=== PATIENT | female | born 1990 | race Caucasian/White ===

== ENCOUNTER 2023-01-04 11:18 | Emergency (ER) | payer MEDICAID, SELFPAY ==
--- NOTE | ~2023-01-04 | CT_ITS ---
EXAMINATION: CT ABDOMEN AND PELVIS WITH CONTRAST CLINICAL INFORMATION: Severe lower abdominal pain COMPARISON: None available. TECHNIQUE: Multidetector volumetric images were obtained from the superior aspect of the liver through the pubic symphysis following administration 85 mL of Omnipaque 350 intravenous contrast. Sagittal and coronal reformatted images were obtained on the technologist's workstation. Oral contrast: No This CT examination was performed using dose optimization techniques as appropriate, variously including the following: *Automated exposure control *Adjustment of mA and/or kV according to patient size (this includes techniques or standardized protocols for targeted exams where dose is matched to indication/reason for exam; i.e. extremities or head) *Use of iterative reconstruction technique DLP: 858 mGy-cm FINDINGS: LUNG BASES: The visualized lung bases are unremarkable. LIVER, GALLBLADDER, AND BILIARY TREE: The liver is normal in size, shape, and attenuation. No focal hepatic lesion or biliary ductal dilatation is present. The gallbladder is unremarkable with no evidence of radiopaque gallstones, gallbladder wall thickening, or obvious pericholecystic inflammatory changes. PANCREAS: Unremarkable. SPLEEN: Unremarkable. ADRENAL GLANDS: Unremarkable. KIDNEYS AND URETERS: The kidneys are normal in size, shape, and attenuation. No hydronephrosis, hydroureter, or calculi seen. No perinephric stranding. BLADDER: Unremarkable. GASTROINTESTINAL TRACT: There is scattered moderate stool and gas seen throughout the colon without significant distention. The small bowel loops are normal caliber. Appendix is normal caliber. No inflammatory process, free air or free fluid. ABDOMINAL WALL: No significant hernia is appreciated. LYMPH NODES: There is a 2.7 x 3.2 x 2.9 cm round lesion along the left anterior abdominal wall anterior to the rectus muscle and adjacent fat stranding. It is solid and measures 52 Hounsfield units. A small umbilical hernia containing fat is noted. VASCULAR: Unremarkable. PELVIC VISCERA: The uterus is anteverted and appears unremarkable. No free fluid or free air seen. OSSEOUS STRUCTURES: No aggressive lytic or sclerotic process seen. CT/CT abdomen pelvis w IV con IMPRESSION: 1. No acute intra-abdominal process seen. 2. Moderate constipation. Normal appendix. 3. Small umbilical hernia containing fat. 4. There is a 2.7 x 3.2 x 2.9 cm round lesion along the left anterior abdominal wall anterior to the rectus muscle and adjacent fat stranding. Differential diagnoses includes keloid, hematoma or granuloma. Fleischner guidelines were followed.
[2023-01-04 12:22] VITALS: BP 130/84; PULSE 88; RESP 20; TEMP 36.4; O2SAT 100; BMI 37.2
--- NOTE | 2023-01-04 12:23 | ED_ITS ---
HPI - Abdominal Pain General Chief Complaint: General Medical Stated Complaint: Hernia Time Seen by Provider: 01/04/23 13:18 Source: patient Limitations: no limitations History of Present Illness HPI narrative: 32-year-old female predominantly [place]an Creole speaking recently moved from [facility]. She has 3 children and has had 3 sections. She has been reporting constant severe lower abdominal pain for months. The symptoms are p rogressively getting worse. The symptoms are worsened by position. There are no relieving features. She has had no diarrhea, fevers but does complain of chills no unexpected weight changes. She denies any night sweats. She has had nausea but no vomiting. Patient has had imaging studies recently including her recent imaging study at [facility]. She reports having had a CT scan there. Today, her pain is gotten progressively worse. She reports her pain is a 10/10. Is in lower abdominal/suprapubic area. The pain does not radiate. Pain is similar in quality to her previous visit in the emergency department Review of the records from 01/03/2023 do in fact show a CT scan the abdomen pelvis with IV contrast only. Impression shows a 3.1 cm area of high attenuation just superficial to the lateral aspect of the left rectus abdominus muscle. Differential diagnosis includes hematoma soft tissue tumor, phlegmon. There is a small umbilical fat containing hernia. Patient was discharged with recommendations to take Tylenol and ibuprofen as needed for pain. Related Data Previous Rx's Medication Instructions Recorded dicyclomine 20 mg tablet 20 mg PO QID #20 tabs 01/04/23 Allergies Allergy/AdvReac Type Severity Reaction Status Date / Time No Known Allergies Allergy Verified 01/04/23 12:26 Review of Systems Review of Systems CONSTITUTIONAL: Denies weight loss, fever and chills. HEENT: Denies changes in vision and hearing. RESPIRATORY: Denies SOB and cough. CV: Denies palpitations no CP. GI: + abdominal pain, nausea, -vomiting and diarrhea. : Denies dysuria and urinary frequency. MSK: Denies myalgia and joint pain. SKIN: Denies rash and pruritus. NEUROLOGICAL: Denies headache and syncope. PSYCHIATRIC: Denies recent changes in mood. Denies anxiety and depression. All other ROS are negative unless in HPI PMFSH Past Medical History Surgical History Hx of section Social History Social History Alcohol intake: never Smoked in Last 30 Days: No Use of substances other than those prescribed or required for medical reasons: No Advance Directives: No Advance Directives Information Provided: No Patient : No Physical Exam ED Vital Signs: Vital Signs - 24 hr 01/04/23 12:22 01/04/23 13:26 Temperature 97.6 F 98.6 F Pulse Rate 88 Respiratory Rate 20 Blood Pressure 130/84 111/51 L Pulse Oximetry 100 Oxygen Delivery Method Room Air BMI result Body Mass Index 37.2 GEN: Well developed, + acute distress, alert, oriented HEENT: Normocephalic, atraumatic, normal external ears, nose appears normal, no oropharyngeal edema or exudates Eyes: Normal to appearance Neck: Supple, no lymphadenopathy Respiratory: Talks in complete sentences, no respiratory distress, clear to auscultation bilaterally Cardiovascular: Regular rate and rhythm, no murmurs rubs or gallops Abdomen: Soft, tenderness lower abdomen, nondistended, no guarding, no rebound Back: No CVA tenderness Extremities: No clubbing cyanosis or edema Neurologic: No focal neurologic deficits, cranial nerves 2-12 intact, strength is 5/5 bilaterally Skin: No rash Course Course Course Narrative: RME - 32 yo Cameroonian/Maori speaking female with history of x3, hx abdominal hernia (unknown what type) presents to the ER for evaluation of worsening abdominal pain for the last several months. Deferred surgery in [place] that was recommended. Seen in [place] where surgery was recommended as well. She has been c/o severe pain with eating and recurrent vomiting. Pain is 10/10, unable to walk today. Abd very tender LLQ, appears very uncomfortable. Plan: labs, CT abd/pelvis w/ contrast Reevaluation(s) Reevaluation #1: The workup is complete. The CT scan of her abdomen and pelvis is consistent with her CT scan yesterday at [facility]. She has a small mass in the abdominal wall. She has a fat containing umbilical hernia. The etiology of her pain is not clearly elucidated this time. I will refer her to OBGYN, Gastroenterology and General surgery for further evaluation. In the meantime, I will try dicyclomine 4 times daily. Time: 16:45 Medical Decision Making Medical Decision Making [facility] Narrative: 32-year-old female presents with severe abdominal pain. Pain is been going on for several months. Examination reveals suprapubic and left lower quadrant abdominal tenderness without rebound or guarding. I did review her recent medical records from [facility] which had an imaging study yesterday. The results were discussed in the HPI. At this point, differential diagnosis includes IBD, IBS, motility disorder, chronic abdominal pain, pain of no unknown etiology, less likely to be diverticulitis, colitis, bowel obstruction, mesenteric ischemia. Will provide patient with analgesia, IV fluids, antiemetics. Will repeat laboratory analysis. A CT scan was ordered prior to my evaluation. We can compare that to yesterday's study. Differential Diagnosis Differential Diagnoses: The differential diagnosis associated with the prese ntation includes (See above) Admission/Observation Consideration of admission/observation: Escalation of care including admission/observation considered (Pending clinical improvement and full evaluation) Lab Data [facility] Lab Attestation statement: I reviewed the patient's lab results. 01/04/23 12:43 01/04/23 12:43 Labs: Lab Results 01/04/23 01/04/23 01/04/23 Range/Units 12:43 12:43 12:43 WBC 6.2 (4.8-10.8) X10*3/uL RBC 4.85 (4.20-5.50) X10*6/uL Hgb 12.3 (12.0-16.0) g/dl Hct 38.2 (37.0-47.0) % MCV 78.8 L (80.0-98.0) fL MCH 25.4 L (27.0-33.0) pg MCHC 32.2 (31.0-35.0) g/dl RDW 14.6 (11.0-16.0) % Plt Count 320 (160-400) X10*3/uL MPV 10.3 (9.4-12.3) fL Immature Gran % (Auto) 0.2 (0.0-0.4) % Neut % (Auto) 51.9 (45-73) % Lymph % (Auto) 34.4 (20-40) % [place] % (Auto) 11.3 H (2-11) % Eos % (Auto) 1.9 (0-4) % Baso % (Auto) 0.3 (0-2) % Lymph # (Auto) 2.1 (1.2-4.9) X10*3/uL [place] # (Auto) 0.7 (0.1-1.2) X10*3/uL Eos # (Auto) 0.1 (0.0-0.4) X10*3/uL Baso # (Auto) 0.0 (0.0-0.2) X10*3/uL Abs Immat Gran (auto) 0.01 (0.00-0.03) X10*3/uL Absolute Neuts (auto) 3.2 (2.0-8.3) x10*3/uL Absolute Nucleated RBC 0.000 (0.0-0.012) X10*3/uL Nucleated RBC % (auto) 0.0 (0.0-0.2) /100WBC Sodium 140 (135-145) mmol/L Potassium 4.5 (3.3-5.1) mmol/L Chloride 106 (96-108) mmol/L Carbon Dioxide 27 (22-29) mmol/L Anion Gap 12 (12-20) BUN 15 (9-16) mg/dL Creatinine 0.80 (0.5-1.4) mg/dL Estim Creat Clear Calc 129.5 Estimated GFR > 60 Random Glucose 80 (60-115) mg/dL Lactic Acid 1.3 (0.5-2.0) mmol/L Calcium 9.9 (8.4-10.2) mg/dL Magnesium 2.2 (1.6-2.6) mg/dL Total Bilirubin 0.6 (0.0-1.0) mg/dL Direct Bilirubin 0.2 (0.0-0.5) mg/dL AST 15 (5-31) U/L ALT 12 (0-31) U/L Alkaline Phosphatase 58 (39-117) U/L Total Protein 7.6 (6.5-8.0) g/dL Albumin 4.2 (3.5-5.0) g/dL Lipase 34 (8-78) U/L Beta HCG, Quant mIU/mL 01/04/23 Range/Units 12:43 WBC (4.8-10.8) X10*3/uL RBC (4.20-5.50) X10*6/uL Hgb (12.0-16.0) g/dl Hct (37.0-47.0) % MCV (80.0-98.0) fL MCH (27.0-33.0) pg MCHC (31.0-35.0) g/dl RDW (11.0-16.0) % Plt Count (160-400) X10*3/uL MPV (9.4-12.3) fL Immature Gran % (Auto) (0.0-0.4) % Neut % (Auto) (45-73) % Lymph % (Auto) (20-40) % [place] % (Auto) (2-11) % Eos % (Auto) (0-4) % Baso % (Auto) (0-2) % Lymph # (Auto) (1.2-4.9) X10*3/uL [place] # (Auto) (0.1-1.2) X10*3/uL Eos # (Auto) (0.0-0.4) X10*3/uL Baso # (Auto) (0.0-0.2) X10*3/uL Abs Immat Gran (auto) (0.00-0.03) X10*3/uL Absolute Neuts (auto) (2.0-8.3) x10*3/uL Absolute Nucleated RBC (0.0-0.012) X10*3/uL Nucleated RBC % (auto) (0.0-0.2) /100WBC Sodium (135-145) mmol/L Potassium (3.3-5.1) mmol/L Chloride (96-108) mmol/L Carbon Dioxide (22-29) mmol/L Anion Gap (12-20) BUN (9-16) mg/dL Creatinine (0.5-1.4) mg/dL Estim Creat Clear Calc Estimated GFR Random Glucose (60-115) mg/dL Lactic Acid (0.5-2.0) mmol/L Calcium (8.4-10.2) mg/dL Magnesium (1.6-2.6) mg/dL Total Bilirubin (0.0-1.0) mg/dL Direct Bilirubin (0.0-0.5) mg/dL AST (5-31) U/L ALT (0-31) U/L Alkaline Phosphatase (39-117) U/L Total Protein (6.5-8.0) g/dL Albumin (3.5-5.0) g/dL Lipase (8-78) U/L Beta HCG, Quant < 2 mIU/mL Independent Interpretation I performed an independent interpretation of an: CT Scan (No acute findings, area of high attenuation in the lateral aspect of the left rectus, otherwise no significant acute findings.) Radiology Impression Discussion of test interpretation with radiology: I have reviewed the radiologist's reading. ( CT/CT abdomen pelvis w IV con IMPRESSION: 1. No acute intra-abdominal process seen. 2. Moderate constipation. Normal appendix. 3. Small umbilical hernia containing fat. 4. There is a 2.7 x 3.2 x 2.9 cm round lesion along the left anterior abdominal wall anterior to the rectus ) External Record Review External record reviewed: Outside ED record ([facility] 01/03/2023) Prescription Management I considered prescription management with: Pain Medication and Antibiotic Medications Administered Discontinued Medications Generic Name Dose Route Start Last Admin Trade Name Freq PRN Reason Stop Dose Admin Hydromorphone HCl 1 mg 01/04/23 13:36 01/04/23 13:51 Hydromorphone Hcl 1 Mg/Ml Syringe IVPUSH 01/04/23 13:37 1 mg ONCE ONE Administration Protocol Sodium Chloride 1,000 mls @ 999 mls/hr 01/04/23 13:45 01/04/23 15:26 Ns IV 01/04/23 14:45 Infused .Q1H1M SAMANTHA Infusion Iohexol 85 ml 01/04/23 14:29 01/04/23 14:29 Iohexol 350 Mg/Ml 100 Ml Infus..Btl IV 01/04/23 14:30 85 ml ONCE ONE Administration Ondansetron HCl 4 mg 01/04/23 13:36 01/04/23 13:51 Ondansetron Hcl 4 Mg/2 Ml Vial IVPUSH 01/04/23 13:37 4 mg ONCE ONE Administration Discharge Plan Discharge Clinical Impression: Abdominal pain, chronic, generalized, Hernia, umbilical, Abnormal finding on imaging Patient Disposition: Home, Self-Care Instructions: Abdominal Pain (ED) Prescriptions: New dicyclomine 20 mg tablet 20 mg PO QID Qty: 20 0RF Referrals: Chris Brock [Physician] - 1 week Cory Schneider MD [Physician] - 1 week Rodger Weldon MD [Physician] - 1 week Print Language: Cameroonian
[2023-01-04 12:50] LABS: MANUAL DIFF FLAG NO
[2023-01-04 12:53] LABS: Basophils Percent Auto 0.3 % (0-2); Eosinophils Absolute Auto 0.1 X10*3/uL (0.0-0.4); Eosinophils Percent Auto 1.9 % (0-4); Hematocrit 38.2 % (37.0-47.0); Hemoglobin 12.3 g/dl (12.0-16.0); Imm Gran Abs Auto 0.01 X10*3/uL (0.00-0.03); Imm Gran Pct Auto 0.2 % (0.0-0.4); Lymphocytes Absolute Auto 2.1 X10*3/uL (1.2-4.9); Lymphocytes Percent Auto 34.4 % (20-40); Mean Corpuscular HGB Conc 32.2 g/dl (31.0-35.0); Mean Corpuscular Hemoglobin 25.4 pg (27.0-33.0); Mean Corpuscular Volume 78.8 fL (80.0-98.0); Mean Platelet Volume 10.3 fL (9.4-12.3); Monocytes Absolute Auto 0.7 X10*3/uL (0.1-1.2); Monocytes Percent Auto 11.3 % (2-11); Neutrophils Absolute Auto 3.2 x10*3/uL (2.0-8.3); Neutrophils Percent Auto 51.9 % (45-73); Platelet Count 320 X10*3/uL (160-400); Red Blood Count 4.85 X10*6/uL (4.20-5.50); Red Cell Distribution Width 14.6 % (11.0-16.0); White Blood Count 6.2 X10*3/uL (4.8-10.8)
[2023-01-04 13:12] LABS: Lactic Acid 1.3 mmol/L (0.5-2.0)
[2023-01-04 13:15] LABS: Alanine Aminotransferase 12 U/L (0-31); Albumin Level 4.2 g/dL (3.5-5.0); Alkaline Phosphatase 58 U/L (39-117); Anion Gap 12 (12-20); Aspartate Amino Transferase 15 U/L (5-31); Bilirubin Direct 0.2 mg/dL (0.0-0.5); Bilirubin Total 0.6 mg/dL (0.0-1.0); Blood Urea Nitrogen 15 mg/dL (9-16); Calcium 9.9 mg/dL (8.4-10.2); Carbon Dioxide 27 mmol/L (22-29); Chloride 106 mmol/L (96-108); Creatinine Clr Calc Pharmacy 129.5; Estimated Glomerular Filt Rate > 60; Glucose Random 80 mg/dL (60-115); Lipase 34 U/L (8-78); Magnesium 2.2 mg/dL (1.6-2.6); Potassium 4.5 mmol/L (3.3-5.1); Sodium 140 mmol/L (135-145); Total Protein 7.6 g/dL (6.5-8.0)
[2023-01-04 13:26] VITALS: BP 111/51; TEMP 37
[2023-01-04 13:30] LABS: HCG Quantitative < 2 mIU/mL
[2023-01-04] MEDS: HYDROmorphone HCl 1 MG/ML SYRINGE IVPUSH (13:51)
[2023-01-04] MEDS: ondansetron HCL 4 MG/2 ML VIAL IVPUSH (13:51)
[2023-01-04] MEDS: 0.9 % Sodium Chloride 1,000 ML 999 ML IV (13:52)
--- NOTE | 2023-01-04 13:56 | PC.NURSE ---
pt alert and oriented, senior radiation therapist in room for initial assessment, dr. reddy in room during assessment, pt states 10/10 pain, vss, medications and fluids administered per provider order, call cifuentes within reach.
[2023-01-04] MEDS: iohexoL 350 MG/ML 100 ML INFUS..BTL 85 ML IV (14:29)
--- NOTE | 2023-01-04 15:59 | PC.NURSE ---
patient a&ox3, pt rang call cifuentes stating she didnt feel right but couldn't describe why, pt was shaking, this nurse applied nuclear monitoring technician and it was noted pt was sinus tach on the monitor- vitals otherwise stable, notified provider, will continue to monitor.
== END 2023-01-04 17:32 | disposition home or self-care (01) ==
PROVIDERS: Physician Assistant; Emergency Provider Emergency Medicine
DX: G89.29 Other chronic pain (principal); R10.84 Generalized abdominal pain; K42.9 Umbilical hernia without obstruction or gangrene; R93.5 Abnormal findings on diagnostic imaging of other abdominal regions, including retroperitoneum; R19.00 Intra-abdominal and pelvic swelling, mass and lump, unspecified site; E66.01 Morbid (severe) obesity due to excess calories; Z68.37 Body mass index [BMI] 37.0-37.9, adult
CPT/HCPCS: 36415; 74177; 80048; 80076; 83605; 83690; 83735; 84702; 85025; 96361; 96374; 96375; 99284; J1170; J2405; Q9967

== ENCOUNTER → 2023-01-15 10:12 | Outpatient (BNVA) | payer MEDICAID, SELFPAY | PROVIDERS: Visit Provider Surgery | DX: R19.00 Intra-abdominal and pelvic swelling, mass and lump, unspecified site (principal); E66.01 Morbid (severe) obesity due to excess calories; Z68.37 Body mass index [BMI] 37.0-37.9, adult | CPT/HCPCS: 99202 ==

== ENCOUNTER 2023-02-18 12:23 | Day surgery (SDC) | payer OTHER, SELFPAY ==
--- NOTE | ~2023-02-18 | US_ITS ---
Ultrasound-guided biopsy of the subcutaneous soft tissue mass in the left lower quadrant INDICATIONS: 3.2 x 3.4 cm solid mass in the subcutaneous tissue in the left lower quadrant. This corresponds to the area of abnormality noted on the previous CT scan dated 01/04/2023. After informed and written consent was obtained an official timeout was performed immediately prior to the procedure. PROCEDURE: Initial ultrasound surveillance was performed. There is a solid lesion in the subcutaneous tissue measuring 3.2 x 3.4 cm in size. The skin was prepped and draped in usual fashion overlying this area. 1% Xylocaine was used for local anesthetic. Under ultrasound guidance an 18-gauge Temno core biopsy needle was placed into the lesion in the left lower quadrant. 4 core biopsy specimens were obtained. The specimens were sent for analysis. The needle was removed and manual pressure held. US/US guide needle placement IMPRESSION: Ultrasound-guided biopsy of the 3.2 x 3.4 cm mass in the subcutaneous tissues in the left lower quadrant
[2023-02-18 13:43] VITALS: BMI 39.9
--- NOTE | 2023-02-18 13:51 | PC.NURSE ---
PATIENT WAS CHECKED IN AND COULDN'T FIND THE PATIENT. OUR SEWER SEPARATION DESIGNER CALLED TO PATIENT REGISTRATION TO SEE WHERE THEY SENT THE PATIENT AND SHE WAS SENT TO THE RADIOLOGY DEPT. THE RADIOLOGY DEPARTMENT HASD THE PATIENT AND WASNT AWARE THE PROCEDURE WAS BOOKED UNDER CONSCIOUS SEDATION. PATIENT BROUGHT TO THE CORRECT DEPT IN [facility] BED [facility] AND THE CERTIFIED ORTHOTIC FITTER WAS USED TO EXPLAIN THE PROCEDURE AND WHY THERE WAS CONFUSION TO WHERE SHE NEEDED TO BE. PATIENT AWARE OF PLAN AND AGREED TO STILL HAVE THE PROCEDURE PERFORMED. URINE SAMPLE COLLECTED AND LAB CALLED.
[2023-02-18 14:03] LABS: UPreg QC Valid YES; Urine Pregnancy NEGATIVE (NEGATIVE)
[2023-02-18 14:16] LABS: MANUAL DIFF FLAG NO
[2023-02-18 14:19] LABS: Basophils Percent Auto 0.4 % (0-2); Eosinophils Absolute Auto 0.1 X10*3/uL (0.0-0.4); Eosinophils Percent Auto 1.3 % (0-4); Hematocrit 36.5 % (37.0-47.0); Hemoglobin 11.9 g/dl (12.0-16.0); Lymphocytes Absolute Auto 2.3 X10*3/uL (1.2-4.9); Lymphocytes Percent Auto 42.2 % (20-40); Mean Corpuscular HGB Conc 32.6 g/dl (31.0-35.0); Mean Corpuscular Hemoglobin 25.6 pg (27.0-33.0); Mean Corpuscular Volume 78.5 fL (80.0-98.0); Mean Platelet Volume 10.3 fL (9.4-12.3); Monocytes Absolute Auto 0.7 X10*3/uL (0.1-1.2); Monocytes Percent Auto 12.8 % (2-11); Neutrophils Absolute Auto 2.4 x10*3/uL (2.0-8.3); Neutrophils Percent Auto 43.3 % (45-73); Platelet Count 299 X10*3/uL (160-400); Red Blood Count 4.65 X10*6/uL (4.20-5.50); White Blood Count 5.5 X10*3/uL (4.8-10.8)
[2023-02-18 14:24] LABS: INTERNATIONAL NORM RATIO 0.9 (0.9-1.1); Prothrombin Time 11.3 SEC (11.1-13.3)
[2023-02-18 14:31] LABS: Anion Gap 12 (12-20); Blood Urea Nitrogen 12 mg/dL (9-16); Carbon Dioxide 25 mmol/L (22-29); Chloride 107 mmol/L (96-108); Creatinine Clr Calc Pharmacy 134.1; Estimated Glomerular Filt Rate > 60; Potassium 4.1 mmol/L (3.3-5.1); Sodium 140 mmol/L (135-145)
[2023-02-18 15:35] VITALS: BP 106/50; PULSE 77; RESP 20; TEMP 36.6; O2SAT 100
[2023-02-18] MEDS: Lidocaine HCl 1 % MPF 5 ML VIAL SUBCUT (15:36)
[2023-02-18 15:50] VITALS: BP 102/60; PULSE 76; RESP 18; O2SAT 100
[2023-02-18 16:05] VITALS: BP 114/75; PULSE 82; RESP 18; O2SAT 100
[2023-02-18] MEDS: Acetaminophen 325 MG TABLET 650 MG PO (16:12)
[2023-02-18 16:20] VITALS: BP 121/72; PULSE 81; RESP 16; O2SAT 100
[2023-02-18 16:35] VITALS: BP 109/63; PULSE 75; RESP 14; TEMP 36.6; O2SAT 100
== END 2023-02-18 17:05 | disposition home or self-care (01) ==
PROVIDERS: Radiology Diagnostic Radiology; Visit Provider Radiology Vascular & Interventional Radiology
DX: R19.00 Intra-abdominal and pelvic swelling, mass and lump, unspecified site (principal); E66.01 Morbid (severe) obesity due to excess calories; Z68.37 Body mass index [BMI] 37.0-37.9, adult
CPT/HCPCS: 36415; 49180; 76942; 80051; 81025; 82565; 84520; 85025; 85610; 88305; 88307; 88341; 88342; 99152; J2250; J3010

== ENCOUNTER → 2023-02-18 12:38 | Outpatient (BNV) | payer OTHER, SELFPAY | PROVIDERS: Visit Provider Radiology Vascular & Interventional Radiology | DX: R19.00 Intra-abdominal and pelvic swelling, mass and lump, unspecified site (principal) | CPT/HCPCS: 49180; 76942 ==

== ENCOUNTER 2023-03-19 10:04 | Outpatient (AMB) | payer OTHER, SELFPAY ==
--- NOTE | 2023-03-19 10:31 | MHC.OFFVIS ---
Intake Vital Signs 03/19/23 10:32 BP 126/74 Blood Pressure Location Lt brachial Position Sitting Pulse 97 Pulse Oximetry (%) 99 Oxygen Delivery Method Room Air Intake Visit Reasons: F/u Abd mass Intake Note: This patient presents for an assessment for abdominal mass. Patient c/o; reports no changes. Casing Inspector Required: Yes Casing Inspector Language: Archivist [employer] History Name: Bob Information Interpreted: non-clinical & clinical Accompanied by: Child Allergies No Known Allergies Allergy (Verified 03/19/23 10:36) HPI HPI Comments History of Present Illness Details The patient speaks fluent Japanese and [place] Creole and Adamaris helped facilitate today's visit Notes from the [place] emergency room visit dated 01/04/2023 and notes from [facility] emergency room visit dated 01/02/2023 and related labs and imaging are reviewed. The patient notes that for about a year, she has had progressive left lower quadrant abdominal pain. She has had 2 CTs that demonstrate a solid mass over the left lower rectus. The notes from [facility] indicate outpatient follow-up and IR directed biopsy would be scheduled, but the director of casework services inpatient or unaware of any plans and wished to have the procedures done here at [place]. Other than her C-sections and tubal, the patient denies any prior trauma. She notes that her tubal was performed in 2019. IR biopsy on 02/18/2023 demonstrated endometrioma. The patient needed redirecting because she insisted that in [place] she was told she has a cyst, and has been told in emergency room visits that she has a hernia. She has not seen vegetable loader for this endometrioma and had questions regarding additional pregnancies and tubal ligation. Patient denies other medical problems including diabetes, hypertension, asthma. She does note a family history of hernias and is concerned that her hernia may become problematic in that the pain is related to her hernia. She denies any signs or symptoms of obstruction incarceration or strangulation. The patient notes that her weight is increasing. [facility] Surgical History Hx of section Family History Mother Ovarian cancer Social History Alcohol intake: never Patient Tobacco Use Status: Never used Tobacco Review of Systems Const All systems reviewed & are unremarkable except as noted in HPI and below Reports as per HPI Physical Exam Vital Signs: Last Vital Signs Pulse 97 03/19/23 10:32 BP 126/74 03/19/23 10:32 Pulse Ox 99 03/19/23 10:32 Oxygen Delivery Method Room Air 03/19/23 10:32 On exam, the patient is nontoxic She is in no acute respiratory distress Her abdomen is obese; she was not re-examined Results Reviewed Results Reviewed: 01/04/23 ER notes are reviewed Labs from the ER visit include: Normal white blood cell count and differential of 6.2; normal hemoglobin of 12.3 with normal indices; platelet count 320K Beta hCG is negative LFTs and lipase were normal Notes from [facility] emergency room visit dated 01/02/2023 over reviewed and mass correlating to the exam on physical findings was also noted in addition to a fat filled umbilical hernia IR biopsy here at [facility] 02/18/23 confirmed an endometrioma Assessment & Plan Assessment & Plan (1) Endometrioma: Code(s): N80.129 - Deep endometriosis of ovary, unspecified ovary (2) BMI 37.0-37.9, adult: Code(s): Z68.37 - Body mass index [BMI] 37.0-37.9, adult (3) Morbid (severe) obesity due to excess calories: Code(s): E66.01 - Morbid (severe) obesity due to excess calories Plan The patient has an endometrioma and not a cyst. Her umbilical hernia is an incidental finding. I have reviewed several times the need for her to see vegetable loader and have an outpatient excision, discuss the increased risk of endometrial implant recurrence without hormone treatment and the patient did not seem satisfied with this plan and requested transferring her care elsewhere. Coding Level of Care Code Est Pt Level 4 (03146) Diagnoses Endometrioma N80.129 BMI 37.0-37.9, adult Z68.37 Morbid (severe) obesity due to excess calories E66.01
[2023-03-19 10:32] VITALS: BP 126/74; PULSE 97; O2SAT 99
== END 2023-03-19 11:01 | disposition home or self-care (01) ==
PROVIDERS: Visit Provider Surgery
DX: N80.129 Deep endometriosis of ovary, unspecified ovary (principal); Z68.37 Body mass index [BMI] 37.0-37.9, adult; E66.01 Morbid (severe) obesity due to excess calories
CPT/HCPCS: 99214

== ENCOUNTER → 2023-03-19 10:04 | Outpatient (BNVA) | payer OTHER, SELFPAY | PROVIDERS: Visit Provider Surgery | DX: N80.129 Deep endometriosis of ovary, unspecified ovary (principal); E66.01 Morbid (severe) obesity due to excess calories; Z68.37 Body mass index [BMI] 37.0-37.9, adult | CPT/HCPCS: 99212 ==